=== PATIENT | female | born 1965 | race Caucasian/White ===

== ENCOUNTER → 2020-06-06 | Outpatient (CLI) | payer OTHER, BC ==
[~2020-06-06] MED LIST: DOXYCYCLINE100 M3 PO; LISINOPRIL-HCT1 EACH PO; NORCO 5-325 TA1 EACH PO; ULTRAM50 MG PO; VITAMIN D350 MC2 PO; XARELTO10 MG PO
== END | disposition home or self-care (01) ==
LOC: COVID19 12:28
PROVIDERS: ATTEND Podiatrist Foot & Ankle Surgery
DX: Z01.818 Encounter for other preprocedural examination (principal); Z20.822 Contact with and (suspected) exposure to COVID-19

== ENCOUNTER → 2020-06-11 | Day surgery (SDC) | payer BC, OTHER ==
[~2020-06-11] VITALS: Ht 162.5 cm; Wt 136.1 kg
[2020-06-11 08:00] VITALS: BP 181/83
[2020-06-11 11:08] VITALS: BP 148/93
[2020-06-11 11:20] VITALS: BP 140/94
[2020-06-11 11:37] VITALS: BP 146/89
== END ==
LOC: SDC 06-09 14:00
PROVIDERS: ATTEND Podiatrist
DX: T84.84XA Pain due to internal orthopedic prosthetic devices, implants and grafts, initial encounter (principal); I10 Essential (primary) hypertension; Y83.8 Other surgical procedures as the cause of abnormal reaction of the patient, or of later complication, without mention of misadventure at the time of the procedure